=== PATIENT | female | born 1960 | race Caucasian/White ===

== ENCOUNTER 2016-11-23 15:54 | Emergency (ER) | payer BC ==
[~2016-11-23] VITALS: Ht 165.1 cm; Wt 64.3 kg
[2016-11-23 16:23] VITALS: Ht 165.1 cm; Wt 64.3 kg
[2016-11-23] MEDS ORDERED: SODIUM CHLORIDE 0.9% 1000ML 1,000 ML IV STA (16:57)
[2016-11-23 17:11] VITALS: O2SAT 98
[2016-11-23] MEDS ORDERED: MONT1TAB3 PO (17:11)
[2016-11-23] MEDS ORDERED: CONJ0.3T3 PO (17:11)
[2016-11-23] MEDS ORDERED: OLOP0.1S2 OP (17:11)
[2016-11-23] MEDS ORDERED: OPTIRAY 320 IV PRN (17:15)
--- NOTE | 2016-11-23 17:32 | EMERGENCY ROOM VISIT NOTE ---
History Report prepared by Jessica: Halina Iyer Under the Supervision of: Dr. Jose Moura M.D. First contact with patient: 16:48 Chief Complaint: SYNCOPE (NEAR SYNCOPE) Stated Complaint: PASSED OUT AT WORK,PB 88/55 History of Present Illness The patient is a 56 year old female who presents to the Emergency Room with complaints of a sudden episode of syncope that occurred about 5 hours ago. 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 Prior to experiencing syncope, the patient became sweaty and hot. She states that she was also experiencing nausea. The next thing the patient remembers is waking up and looking at the ceiling. The school nurse took the patient's blood pressure after the episode of syncope and it was 88/55. The school nurse suggested that she come into the ED for further management. The patient denies fevers and sore throat. She states that she ate breakfast and ate a normal lunch around 1130. The patient denies any increased stress recently. The patient adds that she experiences dizziness with sudden changes in position. She denies any family history of cardiac issues or sudden . The patient denies any chance of and states that her most recent menstrual period was several years ago. The patient's daily medications consist of a hormone replacement drug, Singulair, and Imitrex as needed for migraines. Additionally, the patient states that her lifted her up by the waist 4days ago to try to turn off the smoke alarm. Ever since then, she has been experiencing some left lateral chest/left upper quadrant abdominal pain. She denies any pain with breathing and states that the pain is only there with stretching or bending over to pull herself up. Source of History: patient Onset: 5 days ago Position: other (global) Quality: other (syncope) Timing: other (sudden) Associated Symptoms: + abdominal pain, + chest pain, + nausea Note: sweating, hot, no pain with breathing Review of Systems See HPI for pertinent positives & negatives. A total of 10 systems reviewed and were otherwise negative. Past Medical & Surgical Medical Problems: (1) Migraine headache Family History Cancer Social History Smoking Status: Never Smoker Smokeless Tobacco Use: No Alcohol Use: none Drug Use: none Marital Status: Housing Status: lives with family Occupation Status: employed Current/Historical Medications Scheduled Estrog Conj/Medryoxyprog Acet (Prempro 0.3MG/1.5MG), 1 TAB PO Q2D Montelukast Sodium (Singulair), 10 MG PO DAILY Olopatadine Hcl (Patanol 0.1% Oph), 1 DROP OP DAILY Allergies Coded Allergies: No Known Allergies (Unverified , 11/23/16) Physical Exam Vital Signs Date Time Temp Pulse Resp B/P Pulse Ox O2 Delivery O2 Flow Rate FiO2 11/23/16 19:09 37.0 65 16 95/67 98 11/23/16 19:08 65 16 95/67 98 Room Air 11/23/16 17:59 64 17 11/23/16 17:54 65 15 11/23/16 17:49 67 15 11/23/16 17:44 65 20 11/23/16 17:39 63 13 11/23/16 17:34 66 17 11/23/16 17:29 62 16 11/23/16 17:24 67 22 11/23/16 17:20 102/65 98 Room Air 97/71 11/23/16 17:19 63 17 107/60 11/23/16 17:18 69 18 107/60 98 64 102/65 97/71 11/23/16 17:14 66 16 11/23/16 17:13 68 11/23/16 17:11 98 Room Air 11/23/16 16:23 37.0 82 18 124/72 97 Room Air Physical Exam GENERAL: Patient is a healthy-appearing well-nourished female HEAD: Normocephalic atraumatic EYES: Ocular movements intact pupils equal and react to light OROPHARYNX mucous membranes are moist no exudates present no erythema or edema present NECK: Supple no nuchal rigidity CHEST: Good equal expansion LUNGS: Clear and equal to auscultation CARDIAC: Normal S1 and S2 ABDOMEN: Soft acutely tender in left upper quadrant positive guarding BACK: No CVA tenderness EXTREMITIES: No pain upon palpation normal muscle strength in all groups no clubbing cyanosis or edema NEURO: Patient is following commands is answering questions appropriately. Alert and oriented x3 Cranial Nerves 2-12 grossly intact Medical Decision & Procedures ER Provider Diagnostic Interpretation: CT results as stated below per my review and radiologist interpretation: CT OF THE ABDOMEN AND PELVIS WITH CONTRAST IMPRESSION: No acute process within the abdomen or pelvis. Electronically signed by: Angel Campos M.D. 11/23/2016 6:31 PM Dictated Date/Time: 11/23/2016 6:26 PM Laboratory Results 11/23/16 17:30 Red Blood Count 4.38, Mean Corpuscular Volume 92.7, Mean Corpuscular Hemoglobin 32.0, Mean Corpuscular Hemoglobin Concent 34.5, Mean Platelet Volume 10.3, Neutrophils (%) (Auto) 60.4, Lymphocytes (%) (Auto) 31.9, Monocytes (%) (Auto) 6.4, Eosinophils (%) (Auto) 1.0, Basophils (%) (Auto) 0.2, Neutrophils # (Auto) 4.98, Lymphocytes # (Auto) 2.63, Monocytes # (Auto) 0.53, Eosinophils # (Auto) 0.08, Basophils # (Auto) 0.02 11/23/16 17:30 Test 11/23/16 17:28 11/23/16 17:30 Bedside Glucose 93 mg/dl (70-90) White Blood Count 8.25 K/uL (4.8-10.8) Red Blood Count 4.38 M/uL (4.2-5.4) Hemoglobin 14.0 g/dL (12.0-16.0) Hematocrit 40.6 % (37-47) Mean Corpuscular Volume 92.7 fL (80-100) Mean Corpuscular Hemoglobin 32.0 pg (25-34) Mean Corpuscular Hemoglobin Concent 34.5 g/dl (32-36) Platelet Count 303 K/uL (130-400) Mean Platelet Volume 10.3 fL (7.4-10.4) Neutrophils (%) (Auto) 60.4 % Lymphocytes (%) (Auto) 31.9 % Monocytes (%) (Auto) 6.4 % Eosinophils (%) (Auto) 1.0 % Basophils (%) (Auto) 0.2 % Neutrophils # (Auto) 4.98 K/uL (1.4-6.5) Lymphocytes # (Auto) 2.63 K/uL (1.2-3.4) Monocytes # (Auto) 0.53 K/uL (0.11-0.59) Eosinophils # (Auto) 0.08 K/uL (0-0.5) Basophils # (Auto) 0.02 K/uL (0-0.2) RDW Standard Deviation 41.5 fL (36.4-46.3) RDW Coefficient of Variation 12.2 % (11.5-14.5) Immature Granulocyte % (Auto) 0.1 % Immature Granulocyte # (Auto) 0.01 K/uL (0.00-0.02) Urine Color YELLOW Urine Appearance CLEAR (CLEAR) Urine pH 7.5 (4.5-7.5) Urine Specific [place] 1.001 (1.000-1.030) Urine Protein NEG (NEG) Urine Glucose (UA) NEG (NEG) Urine Ketones NEG (NEG) Urine Occult Blood TRACE (NEG) Urine Nitrite NEG (NEG) Urine Bilirubin NEG (NEG) Urine Urobilinogen NEG (NEG) Urine Leukocyte Esterase SMALL (NEG) Urine WBC (Auto) >30 /hpf (0-5) Urine RBC (Auto) 0-4 /hpf (0-4) Urine Hyaline Casts (Auto) 1-5 /lpf (0-5) Urine Epithelial Cells (Auto) >30 /lpf (0-5) Urine Bacteria (Auto) 2+ (NEG) Urine Renal Epithelial Cells /lpf (0-5) Urine Yeast (Auto) BUDDING (NONE PRSENT) Urine Test NEG (NEG) Anion Gap 8.0 mmol/L (3-11) Est Creatinine Clear Calc Drug Dose 68.9 ml/min Estimated GFR () 91.3 Estimated GFR (Non- 78.8 BUN/Creatinine Ratio 20.8 (10-20) Calcium Level 9.6 mg/dl (8.5-10.1) Total Bilirubin 0.5 mg/dl (0.2-1) Direct Bilirubin < 0.1 mg/dl (0-0.2) Aspartate Amino Transf (AST/SGOT) 26 U/L (15-37) Alanine Aminotransferase (ALT/SGPT) 23 U/L (12-78) Alkaline Phosphatase 63 U/L (45-117) Total Protein 8.0 gm/dl (6.4-8.2) Albumin 4.1 gm/dl (3.4-5.0) Thyroid Stimulating Hormone (TSH) 3.700 uIu/ml (0.300-4.500) Labs reviewed by ED physician. Medications Administered Medications (Trade) Dose Ordered Sig/Radha Route Start Time Stop Time Status Last Admin Dose Admin Sodium Chloride (Nss 1000ml) 1,000 ml @ 999 mls/hr Q1H1M STAT IV 11/23/16 16:57 11/23/16 17:57 DC 11/23/16 17:32 999 MLS/HR ECG Indication: syncope Rate (beats per minute): 61 Rhythm: normal sinus Findings: no acute ischemic change, no ectopy ED Course 1650: Past medical records reviewed. The patient was evaluated in room C1. A complete history and physical examination was performed. 165: Ordered Sodium Chloride 1000 ml @ 999 mls/hr IV 1846: Upon reexamination the patient is doing well. I discussed results and treatment plan with the patient. She verbalizes agreement and understanding. The patient is ready for discharge. Medical Decision Differential diagnosis: Etiologies such as vasovagal event, infection, hypoglycemia, electrolyte abnormalities, cardiac sources, intracerebral event, toxicologic, neurologic, as well as others were entertained. This is a 56-year-old female who presents emergency department complaining of vasovagal episode. Upon arrival to the emergency department the patient is feeling better. The patient has never had this happen to her before however has expressed dizzy spells from standing up too quickly. She has a normal urinalysis, normal CBC, normal EKG, the patient is experiencing left upper quadrant abdominal tenderness and due to the vasovagal episode along with this tenderness she was sent for CAT scan the abdomen pelvis. This is however normal. I do believe she can be safely discharged home for follow-up with cardiology. Patient was in agreement with the treatment plan. Impression Primary Impression: Vasovagal episode Scribe Attestation The scribe's documentation has been prepared under my direction and personally reviewed by me in its entirety. I confirm that the note above accurately reflects all work, treatment, procedures, and medical decision making performed by me. Departure Information Dispostion Home / Self-Care Referrals Larisa Conroy D.O. (PCP) Forms HOME CARE DOCUMENTATION FORM, IMPORTANT VISIT INFORMATION Patient Instructions My [facility], Treatment for Vasovagal Syncope, Understanding Vasovagal Syncope Additional Instructions Increase fluids next 48 [address] Follow up with [address] Leo's offfice No strenuous activity for next 48 hours You have been examined and treated today on an emergency basis only. This is not a substitute for, or an effort to provide, complete comprehensive medical care. It is impossible to recognize and treat all injuries or illnesses in a single emergency department visit. It is therefore important that you follow up closely with Dr Conroy. Call as soon as possible for an appointment. Thank you for your time and consideration. I look forward to speaking with you again soon. Please don't hesitate to call us if you have any questions.
[2016-11-23 17:44] LABS: BASO % 0.2 %; BASO ABS # 0.02 K/uL (0-0.2); COMPLETE YES; HEMATOCRIT 40.6 % (37-47); IG% 0.1 %; LYMPH % 31.9 %; LYMPH ABS # 2.63 K/uL (1.2-3.4); MEAN CELL VOLUME 92.7 fL (80-100); MEAN CORPUSCULAR HGB CONC 34.5 g/dl (32-36); MEAN PLATELET VOLUME 10.3 fL (7.4-10.4); MONO % 6.4 %; NEUT % 60.4 %; PLATELET COUNT 303 K/uL (130-400); RED BLOOD COUNT 4.38 M/uL (4.2-5.4); WHITE BLOOD COUNT 8.25 K/uL (4.8-10.8)
[2016-11-23 18:04] LABS: ALT/SGPT 23 U/L (12-78); BLOOD UREA NITROGEN 18 mg/dl (7-18); BUN/CREATININE RATIO 20.8 (10-20); CALCIUM 9.6 mg/dl (8.5-10.1); CARBON DIOXIDE 28 mmol/L (21-32); CHLORIDE 103 mmol/L (98-107); CREATININE 0.84 mg/dl (0.60-1.20); GLUCOSE 92 mg/dl (70-99); SODIUM 139 mmol/L (136-145)
[2016-11-23 18:14] LABS: ALKALINE PHOSPHATASE 63 U/L (45-117); AST/SGOT 26 U/L (15-37)
[2016-11-23 18:15] LABS: URINE APPEARANCE CLEAR (CLEAR); URINE BILIRUBIN NEG (NEG); URINE COLOR YELLOW; URINE EPITHELIAL CELL AUTO >30 /lpf (0-5); URINE NITRITE NEG (NEG); URINE PH 7.5 (4.5-7.5); URINE SPECIFIC GRAVITY 1.001 (1.000-1.030); UROBILINOGEN NEG (NEG)
[2016-11-23 18:16] LABS: PREG INTERNAL NEGATIVE QC NEG CLEAR BACKGROUND; PREG INTERNAL POSITIVE QC POS CONTROL LINE
[2016-11-23 18:20] LABS: MANUAL MICROSCOPIC REQUIRED? NO; REVIEW REQ? YES
--- NOTE | 2016-11-23 18:32 | DIAGNOSTIC IMAGING REPORT ---
CT OF THE ABDOMEN AND PELVIS WITH CONTRAST CLINICAL HISTORY: Left upper quadrant abdominal pain. COMPARISON STUDY: None. TECHNIQUE: Following IV administration of 89 mL of Optiray-320, axial images of the abdomen and pelvis were obtained from the lung bases to the proximal femurs. Images were reviewed in the axial, sagittal, and coronal planes. IV contrast was administered without complication. CT DOSE: 301.89 mGy.cm FINDINGS: No pneumatosis, free air or portal venous gas is present. The liver, spleen, adrenal glands, kidneys and pancreas are normal. There is no biliary or pancreatic ductal dilatation. There is no peripancreatic or pericholecystic infiltration. There is no hydronephrosis or hydroureter. There is no evidence for a bowel obstruction. The caliber of the appendix is normal. No lymphadenopathy is present. No suspicious skeletal lesions are identified. There is no free fluid. There is mild distention of the bladder. IMPRESSION: No acute process within the abdomen or pelvis. Electronically signed by: Angel aCmpos M.D. 11/23/2016 6:31 PM Dictated Date/Time: 11/23/2016 6:26 PM
[2016-11-23 19:09] VITALS: BP 95/67; PULSE 65; TEMP 37; O2SAT 98
[2016-11-30 09:29] LABS: ISTAT CREATININE 0.8 mg/dl (0.6-1.3); ISTAT IONIZED CALCIUM 1.21 mmol/l (1.12-1.32)
== END 2016-11-23 19:11 | disposition home or self-care (01) ==
LOC: C.EDB 15:55 → C.EDC 19:11
DX: R55 Syncope and collapse (principal); G43.909 Migraine, unspecified, not intractable, without status migrainosus; Z79.899 Other long term (current) drug therapy